=== PATIENT | female | born 1980 | race Caucasian/White ===

== ENCOUNTER 2018-03-30 20:01 | Emergency (ER) | payer BC ==
[~2018-03-30 20:01] MED LIST: ACE3 PO; CLON-303 *; FERR-125 PO; IBU800 PO; IBUP800T37 PO; IRON1TAB55 PO; MET10 PO; NO HOME MEDS; PAR20 PO; PREN-67 PO; PRIM50TA; TRAZ50 PO; [UNRECOGNIZED DRUG - OTHER] PO
[2018-03-30 20:08] VITALS: BP 134/89
[2018-03-30] MEDS ORDERED: ENT KIT ONE (20:17)
--- NOTE | 2018-03-30 20:23 | ER Report ---
History and Physical Time Seen By MD: 20:23 Hx. of Stated Complaint: PT HAS BEEN HAVING NOSE BLEED FOR 40 MINUTES. HAS HAD IT CAUTERIZED TWICE IN THE LAST WEEK AND A HALF. PT IS NOT ON BLOOD THINNERS HPI/ROS CHIEF COMPLAINT: nosebleed HISTORY OF PRESENT ILLNESS: This is a 37 year old female. She is having recurrent nose bleeds. Has seen ENT in [place] twice in the last few weeks. Had chemical cautery. Right nasal septum. Started bleeding again tonight, 40 minutes now. slowing down. She does take excedrin and Ibuprofen. Has Mupirocin ointment. Allergies: Coded Allergies: hydrocodone (Verified Allergy, Intermediate, VOMITING, 07/17/14) Home Meds Active Scripts Ibuprofen (IBUPROFEN) 800 Mg Tablet, 1 TAB PO Q8H, #30 TAB Prov:CLAUDIA FELICIANO MD 08/07/14 Reported Medications [No Home Meds] No Conflict Check 07/17/14 Reviewed Nurses Notes: Yes Hx Alcohol Use: No Constitutional Vital Sign - Last 24 Hours 03/30/18 20:08 Temp 98.9 Pulse 50 Resp 22 B/P (MAP) 134/89 Pulse Ox 100 O2 Delivery Room Air Physical Exam General: Alert, no acute distress. ENT: Dried blood around nasal openings, clamp in place. Bleeding from nasal sept um, mid point anterior. Has cauterized area. This appears from the superior edge of the cauterized area. Medical Decision Making ED Course/Re-evaluation ED Course Procedure: Epistaxis control. Initially treated with compression with a nasal clamp. The patient had continued bleeding. We then used Neosynephrine nasal spray to try and acheive some vasoconstriction to slow or stop the bleeding. Used atomized and cotton soaked with Tranexamic acid. The nose was re-clamped and we waited to re-evaluate. Re- evaluation revealed slowing of the bleeding. The was identified and was on the anterior nasal septum. Bleeding was controlled. The patient tolerated the procedure well. The procedure was performed by myself. Decision to Disposition Date: Mar 30, 2018 Decision to Disposition Time: 21:28 Depart Departure Latest Vital Signs Vital Signs Date Time Temp Pulse Resp B/P (MAP) Pulse Ox O2 Delivery O2 Flow Rate FiO2 03/30/18 20:08 98.9 50 22 134/89 100 Room Air Impression: Primary Impression: Anterior epistaxis Condition: Improved Disposition: HOME OR SELF-CARE Referrals: CLAUDIA FELICIANO MD (PCP) Patient Instructions: Nosebleed (ED) Additional Instructions: Keep using the Mupirocin ointment. You can use the Neosynephrine nasal spray on some cotton in the nose prior to the race tomorrow. Try and avoid Excedrin and use Tylenol or Ibuprofen. SHEYLA WOODS MD Mar 30, 2018 20:23
[2018-03-30] MEDS ORDERED: TRANEXAMIC AC 1000 MG/10ML SDV ONE (20:35)
[2018-03-30] MEDS ORDERED: PHENYLEPHRINE 0.5% 15 ML BTL ONE (21:51)
== END 2018-03-30 21:35 | disposition home or self-care (01) ==
LOC: ER 20:28
DX: R04.0 Epistaxis (principal)
CPT/HCPCS: 99282